=== PATIENT | female | born 1945 | race Caucasian/White ===

== ENCOUNTER → 2017-09-03 | Outpatient (CLI) | payer MEDICARE, OTHER | END | disposition home or self-care (01) | LOC: KCIC MRI 08:26 | DX: M51.36 Other intervertebral disc degeneration, lumbar region (principal); M48.07 Spinal stenosis, lumbosacral region; M25.78 Osteophyte, vertebrae; I10 Essential (primary) hypertension | CPT/HCPCS: 72148 ==

== ENCOUNTER → 2017-10-05 | Outpatient (CLI) | payer MEDICARE, BC, OTHER ==
[2017-10-05 16:01] LABS: ADD MAN DIFF? NO
[2017-10-05 16:12] LABS: BASO % 1 % (0-3); EOS # 0.3 x10^3/uL (0.0-0.7); EOS % 5 % (0-3); HEMATOCRIT 36.1 % (36.0-47.0); HEMOGLOBIN 12.1 g/dL (12.0-15.5); LYMPH # 0.9 x10^3/uL (1.0-4.8); LYMPH % 16 % (24-48); MEAN CORPUSCULAR HEMOGLOBIN 31 pg (25-35); MEAN CORPUSCULAR HGB CONC 34 g/dL (31-37); MEAN CORPUSCULAR VOLUME 94 fL (79-100); MONO # 0.5 x10^3/uL (0.0-1.1); MONO % 9 % (0-9); NEUT % 69 % (31-73); PLATELET COUNT 247 x10^3/uL (140-400); RED BLOOD COUNT 3.86 x10^6/uL (3.50-5.40); RED CELL DISTRIBUTION WIDTH 13.4 % (11.5-14.5); WHITE BLOOD COUNT 5.8 x10^3/uL (4.0-11.0)
[2017-10-05 16:43] LABS: ALBUMIN 3.4 g/dL (3.4-5.0); ALBUMIN/GLOBULIN RATIO 0.9 (1.0-1.7); ALK PHOS 85 U/L (46-116); ALT (SGPT) 16 U/L (14-59); ANION GAP 4 (6-14); AST (SGOT) 8 U/L (15-37); BLOOD UREA NITROGEN 26 mg/dL (7-20); BUN/CREATININE RATIO 20 (6-20); CALCIUM 8.6 mg/dL (8.5-10.1); CARBON DIOXIDE 32 mmol/L (21-32); CHLORIDE 103 mmol/L (98-107); CREATININE 1.3 mg/dL (0.6-1.0); GFR 40.2; GLUCOSE 116 mg/dL (70-99); POTASSIUM 4.1 mmol/L (3.5-5.1); SODIUM 139 mmol/L (136-145); TOTAL BILIRUBIN 0.3 mg/dL (0.2-1.0)
[2017-10-06 02:15] LABS: MRSA BY PCR Negative (Negative)
== END | disposition home or self-care (01) ==
LOC: SURGPAT 13:34
DX: I21.29 ST elevation (STEMI) myocardial infarction involving other sites (principal); R94.31 Abnormal electrocardiogram [ECG] [EKG]
CPT/HCPCS: 36415; 80053; 85025; 87641; 93005

== ENCOUNTER 2017-10-15 10:01 | Day surgery (SDC) | payer MEDICARE, OTHER ==
[2017-10-15] MEDS: IV RINGERS,LACTATED 1000ML 1,000 ML IV (07:00)
[~2017-10-15 10:01] MED LIST: LIDOCAINE 1% PF 2 ML VIAL. ID; MORPHINE SULFATE 4 MG/ML DISP.SYRIN. IV; ONDANSETRON PF 4 MG/2 ML VIAL. IV; PROCHLORPERAZINE 10 MG/2 ML VIAL. IV; fentaNYL PF VIAL 100 MCG/2 ML VIAL IV
[2017-10-15] MEDS ORDERED: LIDOCAINE 2% PF Vial for OR 5 ML VIAL. (11:52)
[2017-10-15] MEDS ORDERED: PROPOFOL 20 ML IV ×2 (11:52→13:01)
[2017-10-15] MEDS ORDERED: ROCURONIUM 50 MG/5 ML VIAL. ×2 (11:52→12:56)
[2017-10-15] MEDS ORDERED: fentaNYL PF VIAL 100 MCG/2 ML VIAL (11:53)
[2017-10-15] MEDS ORDERED: PROPOFOL 50 ML IV ×3 (11:54→14:27)
[2017-10-15] MEDS ORDERED: ceFAZolin 2GM PREMIX 2 GM/50 ML BAG IV (12:00)
[2017-10-15] MEDS ORDERED: SUCCINYLCHOLINE 200 MG/10 ML VIAL. (12:22)
[2017-10-15] MEDS ORDERED: REMIFENTANIL 2 MG VIAL. IV ×2 (12:23→12:56)
[2017-10-15] MEDS ORDERED: PHENYLEPHRINE 10 MG/ML VIAL. (13:01)
[2017-10-15] MEDS ORDERED: DEXAMETHASONE SOD PHOS 20 MG/5 ML VIAL. ×2 (13:01→14:16)
[2017-10-15] MEDS ORDERED: DESFLURANE > 120 MINUTES IH ×2 (13:01→14:16)
[2017-10-15] MEDS ORDERED: ONDANSETRON PF 4 MG/2 ML VIAL. ×2 (13:01→14:16)
[2017-10-15] MEDS ORDERED: ePHEDrine PF IN SALINE 50 MG/5 ML DISP.SYRIN IV (13:44)
[2017-10-15] MEDS ORDERED: PHENYLEPHRINE in 0.9% NACL PF 1 MG/10 ML SYRINGE. IV (13:56)
[2017-10-15] MEDS ORDERED: GLYCOPYRROLATE 1 MG/5 ML VIAL. (14:04)
[2017-10-15] MEDS: GELATIN SPONGE SIZE 100. (14:20)
[2017-10-15] MEDS: BACITRACIN 50,000 UNIT in IV NORMAL SALINE 1000ML BAG 1,000 ML IRR (14:20)
[2017-10-15] MEDS: BUPIVAC MPF-EPI 0.5%-1:200000 30 ML VIAL. INJ (14:20)
[2017-10-15] MEDS: KETOROLAC 60 MG/2 ML INJ FOR OR. (14:20)
[2017-10-15] MEDS: THROMBIN TOPICAL 20,000 UNIT SPRAY.SYRN KIT TP (14:20)
[2017-10-15] MEDS ORDERED: NEOSTIGMINE METHYLSULFATE 5 MG/5 ML SYRINGE. (14:58)
[2017-10-15] MEDS: fentaNYL PF VIAL 100 MCG/2 ML VIAL IV ×2 (15:38→15:49)
[2017-10-15] MEDS: HYDROcodone/APAP 7.5/325MG 1 TAB TABLET PO (16:33)
== END 2017-10-15 17:20 | disposition home or self-care (01) ==
LOC: SURG 10:01
DX: M51.16 Intervertebral disc disorders with radiculopathy, lumbar region (principal); M48.061 Spinal stenosis, lumbar region without neurogenic claudication; I10 Essential (primary) hypertension; F32.9 Major depressive disorder, single episode, unspecified; F41.9 Anxiety disorder, unspecified; K21.9 Gastro-esophageal reflux disease without esophagitis; Z90.49 Acquired absence of other specified parts of digestive tract; Z98.890 Other specified postprocedural states; Z85.42 Personal history of malignant neoplasm of other parts of uterus; Z98.51 Tubal ligation status; Z90.710 Acquired absence of both cervix and uterus; Z96.643 Presence of artificial hip joint, bilateral
CPT/HCPCS: 63030; 76000; 97161-GP; A7015; G8978-CH-GP; G8979-CH-GP; G8980-CH-GP; J0330; J0690; J1100; J1885; J2370; J2405; J2704; J2710; J3010; J3490; J7030; J7120

== ENCOUNTER → 2018-06-16 | Outpatient (CLI) | payer MEDICARE, BC, OTHER ==
[2017-10-15 16:04] VITALS: BP 109/79
[~2018-06-16] MED LIST changes: +DOCU-109 PO; +GADOBUTROL 10 MMOL/10 ML VIAL IV ONE; +HYDR-2761 PO; +HYDR-2765 PO; -LIDOCAINE 1% PF 2 ML VIAL. ID; +LOSA1TAB22 PO; +MELO7.5T29 PO; +MIRA50TA PO; -MORPHINE SULFATE 4 MG/ML DISP.SYRIN. IV; +OMEP20TA63 PO; +ONDA4TAB10 SL; +ONDA4TAB7 PO; -ONDANSETRON PF 4 MG/2 ML VIAL. IV; +PREG50CA PO; -PROCHLORPERAZINE 10 MG/2 ML VIAL. IV; +TRAM50TA PO; +VORT10TA PO; +brintellix PO; -fentaNYL PF VIAL 100 MCG/2 ML VIAL IV
--- NOTE | 2018-06-16 15:39 | KCIC ---
MRI pelvis with and without contrast June 16, 2018 INDICATION: Vaginal cancer. COMPARISON: CT abdomen/pelvis February 12, 2017, MRI pelvis December 23, 2017 TECHNIQUE: Multiplanar, multisequence MR imaging of the pelvis was performed before and after the demonstration of 9 cc gadolinium based contrast. FINDINGS: Iliac vessels appear intact. There are no pathologically enlarged lymph nodes in abdomen and pelvis. There are no pathologically enlarged lymph nodes along the pelvic sidewall are within the mesorectal fat. Evaluation is limited by bilateral total hip arthroplasty resulting in susceptibility artifact. Rectum and rectosigmoid junction appear normal. No bowel wall thickening or perirectal inflammatory changes are identified. Levator ani appears intact. There is no disruption of the pelvic sidewall. The uterus is surgically absent. Ovaries are not visualized. Nodular thickening along the right vaginal cuff previously measured approximately 3.8 x 3.4 cm and currently measures 1.8 x 1.7 cm and measured in similar dimensions. This finding does not significantly enhance and is predominantly T2 hypointense. Consideration may be given for scar tissue. No significant mucosal abnormality is identified involving the lower two thirds of the vagina. The urethra and urinary bladder appear intact. Motion limits evaluation of the posterior bladder wall, however previously seen contiguity between the vagina and posterior bladder is not confirmed on the current examination. There is no significant bladder wall thickening. IMPRESSION: 1. There is decreased nodular thickening of the right vaginal cuff which may be associated with posttreatment effect. No definite invasion of the posterior urinary bladder is visualized on current examination. 2. No new or enlarging pelvic lymphadenopathy. Electronically signed by: Nela Carrera MD (06/16/2018 3:35 PM) [id number]
== END | disposition home or self-care (01) ==
LOC: KCIC MRI 13:26
DX: C52 Malignant neoplasm of vagina (principal); C54.1 Malignant neoplasm of endometrium; Z96.643 Presence of artificial hip joint, bilateral; Z90.710 Acquired absence of both cervix and uterus
CPT/HCPCS: 72197; A9585

== ENCOUNTER → 2021-05-30 | Outpatient (CLI) | payer MEDICARE, BC, OTHER ==
[2020-09-26 11:00] VITALS: BP 100/61
[~2021-05-30] MED LIST changes: +CIPR500T2 PO; +CONTRAST GIVEN. MC PRN; -GADOBUTROL 10 MMOL/10 ML VIAL IV ONE; +IOHEXOL 240 MG/ML 50ML VIAL. PO ONE; +LETROZOLE2.5 MG PO; +MIRA25TA PO; -MIRA50TA PO; +PRED-220 PO; -PREG50CA PO; +PREG50CA91 PO
[2021-05-30 13:47] LABS: ALBUMIN 2.7 g/dL (3.4-5.0); ALBUMIN/GLOBULIN RATIO 0.7 (1.0-1.7); CALCIUM 7.5 mg/dL (8.5-10.1); CREATININE 1.8 mg/dL (0.6-1.0); GFR 27.3; POTASSIUM 4.2 mmol/L (3.5-5.1); TOTAL BILIRUBIN 0.1 mg/dL (0.2-1.0); TOTAL PROTEIN 6.6 g/dL (6.4-8.2)
--- NOTE | 2021-05-30 14:50 | RAD ---
EXAM: Chest, abdomen and pelvis CT without intravenous contrast. HISTORY: Endometrial cancer. TECHNIQUE: Computed tomographic images of the chest, abdomen and pelvis were obtained without intrave nous contrast. Multiplanar reformatting was performed. *One or more of the following individualized dose reduction techniques were utilized for this examina tion: 1. Automated exposure control. 2. Adjustment of the mA and/or kV according to patient size. 3. Use of iterative reconstruction technique. COMPARISON: 04/29/2021. FINDINGS: Chest: There is mild cardiomegaly. There is a small pericardial effusion. There is calcifie d atherosclerotic plaque involving the coronary arteries. There is a left chest wall port catheter. T here are nonspecific mediastinal and hilar lymph nodes. These are not pathologically enlarged. There is no pneumothorax. There is no pleural effusion. There is no infiltrate or suspicious pulmonary nodu le. There are degenerative changes throughout the thoracic and lower cervical spine. There is no acut e or suspicious osseous lesion. There are bilateral shoulder arthroplasties. Abdomen and pelvis: There is a stable 8 mm hypodense lesion within the left hepatic lobe. The gallbla dder, pancreas, spleen, stomach and adrenal glands are unremarkable. There are are bilateral cutaneou s nephrostomy tubes. There is moderate right and mild left hydronephrosis. There is right renal corti temitope thinning and right renal atrophy. The bladder is obscured due to streak artifact from bilateral h ip arthroplasties. There is no appendicitis. There is no bowel obstruction. There is moderate colonic stool. There is di stal colonic diverticulosis. There is a small ventral abdominal wall hernia to the right of the umbil icus containing a portion of the wall of a segment of small bowel. There is no evidence of bowel inca rceration. There is a larger midline inferior ventral abdominal wall hernia containing a segment of s mall bowel. There is overlying scarring due to a prior laparotomy. There are multiple coils within the bilateral adnexal regions. The uterus is absent. There is a stabl e 4.8 cm soft tissue density structure along the right ventral aspect of the rectosigmoid junction. T here is a small amount of pelvic free fluid and stranding within the presacral space. The aorta is no rmal in caliber. There is no convincing pathologically enlarged lymph node or metastatic implants. Th ere are degenerative changes throughout the spine. There are left hemicolectomy changes at L4-L5. The re is no acute or suspicious osseous finding. IMPRESSION: 1. Limited evaluation of the pelvis due to streak artifact from metallic hip arthroplasties. The uter us is absent. There is a stable 1.8 cm soft tissue structure along the right anterior rectosigmoid ju nction which may be due to scar/granulation tissue associated with the vaginal cuff or local residual neoplasm. There is stable surrounding trace fluid and stranding. No lymphadenopathy or metastatic im plant is seen. 2. Moderate right and mild left hydronephrosis and bilateral percutaneous nephrostomy tubes. The righ t hydronephrosis is decreased compared to the prior exam. There is right renal atrophy and right lavonne l cortical thinning. 3. Slight interval increase in a small pericardial effusion. 4. Colonic diverticulosis. 5. Moderate colonic stool. Correlate for constipation. 6. Small stable ventral abdominal wall hernias. 7. Stable indeterminant 8 mm hypodense lesion within the left hepatic lobe. Electronically signed by: Kindra Sepulveda MD (05/30/2021 2:47 PM) [id number]
== END ==
LOC: CT 12:53
PROVIDERS: ATTEND Internal Medicine Hematology & Oncology
DX: N26.1 Atrophy of kidney (terminal) (principal); K57.30 Diverticulosis of large intestine without perforation or abscess without bleeding; N13.30 Unspecified hydronephrosis; K43.9 Ventral hernia without obstruction or gangrene; I31.3 Pericardial effusion (noninflammatory); K56.41 Fecal impaction; I51.7 Cardiomegaly; I25.10 Atherosclerotic heart disease of native coronary artery without angina pectoris; K76.89 Other specified diseases of liver; M47.812 Spondylosis without myelopathy or radiculopathy, cervical region; M47.814 Spondylosis without myelopathy or radiculopathy, thoracic region; Z96.612 Presence of left artificial shoulder joint; Z96.611 Presence of right artificial shoulder joint
CPT/HCPCS: 36415; 71250; 74176; 80053; Q9966

== ENCOUNTER 2021-08-23 22:45 | Inpatient (IN) | payer MEDICARE, BC, OTHER ==
[~2021-08-23] VITALS: Ht 154.9 cm; Wt 72.2 kg
--- NOTE | 2021-08-23 22:35 | NUR ---
Patient admitted from [facility] ER to room 432 per cart. Admitting diagnosis: Hematuria and UTI. Patient has bilateral nephrostomy tubes and the right tube has had decreased output and some blood into the tubing. There has also been some thick white drainage noted inside of the tube. Patient tested positive for UTI and CT Scan showed partial dislodgement of right nephrostomy tube. Patient is alert and oriented x4. denies pain at this time. Will continue to monitor.
[~2021-08-23 22:45] MED LIST changes: -CONTRAST GIVEN. MC PRN; -IOHEXOL 240 MG/ML 50ML VIAL. PO ONE
[2021-08-23] MEDS ORDERED: TRAM50TA PO (23:28)
[2021-08-23 23:35] VITALS: BP 150/82
[2021-08-23] MEDS ORDERED: traMADol 50 MG TABLET PO PRN (23:45)
[2021-08-24 02:44] VITALS: BP 129/56
[2021-08-24] MEDS: ONDANSETRON ODT 4 MG TAB.RAPDIS. PO PRN ×3 (03:57→15:18)
[2021-08-24 07:00] VITALS: BP 134/64
--- NOTE | 2021-08-24 11:14 | PDOC1 ---
History and Physical Date of Service: DOS: DATE: 08/24/21 TIME: 11:09 Chief Complaint: Chief Complain: Hematuria History of Present Illness: HPI: Patient is 76-year-old female presented outside emergency room yesterday due to concern for nephrostomy tube obstruction. Has bilateral nephrostomy tubes in place. Over the past few days has noted decreased output out of the right tube and that the output has been a bit bloody. The blood is also been mixed with a purulent white discharge. Imaging at outside hospital revealed the right TM to be displaced. Was transferred here for further treatment. When seen at bedside patient was resting in bed. No distress. Past Medical/Surgical History: PMH/PSH: Arthritis cancer gastroparesis Allergies: Allergies: Coded Allergies: cephalexin (Verified Allergy, Intermediate, 09/24/20) cycloserine (Verified Allergy, Intermediate, 08/24/21) Family History: Family History: None known Social History: Social History: Denies alcohol tobacco drug use Current Medications: Current Medications Current Medications Tramadol HCl (Ultram) 50 mg PRN QHS PRN PO MODERATE PAIN 4-6 Last administered on 08/24/21at 00:14; Start 08/23/21 at 23:45 Ondansetron HCl (Zofran Odt) 4 mg PRN Q4HRS PRN PO NAUSEA/VOMITING 1ST CHOICE Last administered on 08/24/21at 08:11; Start 08/23/21 at 23:45 Morphine Sulfate (Morphine Sulfate) 2 mg PRN Q2HR PRN IVP SEVERE PAIN 7-10; Start 08/23/21 at 23:45 Piperacillin Sod/ Tazobactam Sod (Zosyn Per Pharmacy) 1 each PRN DAILY PRN MC SEE COMMENTS; Start 08/24/21 at 11:15; Status UNV Ondansetron HCl (Zofran) 4 mg PRN Q6HRS PRN IVP NAUSEA/VOMITING; Start 08/24/21 at 11:15; Status UNV Calcium Carbonate/ Glycine (Tums) 500 mg PRN Q3HRS PRN PO UPSET STOMACH; Start 08/24/21 at 11:15; Status UNV Info (Non-Icu Electrolyte Protocol) 1 ea PRN DAILY PRN MC SEE COMMENTS; Start 08/24/21 at 11:15; Status UNV Oxycodone/ Acetaminophen (Percocet 5/325) 1 tab PRN Q4HRS PRN PO MILD PAIN, 1ST CHOICE; Start 08/24/21 at 11:15; Status UNV Oxycodone/ Acetaminophen (Percocet 5/325) 2 tab PRN Q4HRS PRN PO MODERATE PAIN, SEVERE PAIN; Start 08/24/21 at 11:15; Status UNV Acetaminophen (Tylenol) 650 mg PRN Q6HRS PRN PO Headaches, Temp > 101.5F; Start 08/24/21 at 11:15; Status UNV Senna/Docusate Sodium (Senna Plus) 1 tab BID PO ; Start 08/24/21 at 21:00; Status UNV Heparin Sodium (Porcine) (Heparin Sodium) 5,000 unit Q8HRS SQ ; Start 08/24/21 at 14:00; Status UNV Tramadol HCl (Ultram) 50 mg HS PO ; Start 08/24/21 at 21:00; Status UNV Non-Formulary Medication (Letrozole (Femara)) 2.5 mg DAILY PO ; Start 08/25/21 at 09:00; Status UNV Non-Formulary Medication (Vortioxetine Hydrobromide (Trintellix)) 20 mg DAILY PO ; Start 08/25/21 at 09:00; Status UNV Active Scripts Active Colace (Docusate Sodium) 100 Mg Capsule 100 Mg PO BID 30 Days Reported Tramadol Hcl 50 Mg Tablet 50 Mg PO HS Femara (Letrozole) 2.5 Mg Tablet 2.5 Mg PO DAILY Zofran (Ondansetron Hcl) 4 Mg Tablet 4 Mg PO BID PRN Trintellix (Vortioxetine) 10 Mg Tablet 20 Mg PO DAILY ROS: Review of Systems Review of System Unless noted in HPI 14 point review systems is negative Physical Exam: Vital Signs: Vital Signs Date Time Temp Pulse Resp B/P (MAP) Pulse Ox O2 Delivery O2 Flow Rate FiO2 08/24/21 08:00 Room Air 08/24/21 07:00 98.4 70 16 134/64 (87) 96 98.4 Physcial Exam: GEN: No apparent distress. Alert and oriented HEENT: Normal cephalic, atraumatic, external auditory canals are patent EYES: Extraocular muscles are intact, pupil are equally round and reactive to light and accommodation MUSCULOSKELETAL: Well developed , well nourished, good range of motion ENDOCRINE: No thyromegaly was palpated LYMPHATICS: No cervical chain or axillary nodes were noted HEMATOPOIETIC: No bruising NECK: Supple, no JVD, no thyromegaly was noted LUNGS: Clear to auscultation in all lung jean-baptiste without rhonchi or wheezing HEART: RRR, S!, S2 present. Peripheral pulses intact, no obvious murmurs noted ABDOMEN: Soft, nontender. Positive bowel sounds, no organomegaly, normal bowel sounds EXTREMITIES: Without clubbing, cyanosis, or edema. Pedal pulses intact. Negative Homans sign NEUROLOGIC: Normal speech and tone. A&O x 3, moves all extremities, no obvious focal deficits PSYCHIATRIC: Normal affect, normal mood. Stable SKIN: No ulcerations or rashes, good skin turgor, no jaundice VASCULAR: Good capillary refill, neurovascular bundle appears to be intact Assessment/Plan Assessment/Plan Hydronephrosis, displaced nephrostomy tube, urinary tract infection history of arthritis gastroparesis, DONALD on CKD -Decreased output from right nephrostomy tube. Found to be displaced infected -Transferred here for further work-up -Start Zosyn -As needed pain control -IR consult -Labs at outside hospital showing DONALD. Repeat here -Discussed with bedside RN -DVT prophylaxis Justifications for Admission Other Justification ALEKSANDAR ORTIZ MD Aug 24, 2021 11:14
[2021-08-24] MEDS ORDERED: oxyCODONE/APAP 5/325 1 TAB TABLET PO PRN ×2 (11:15)
[2021-08-24] MEDS ORDERED: ACETAMINOPHEN 325 MG TABLET. PO PRN (11:15)
[2021-08-24] MEDS ORDERED: PIP/TAZO PER PHARMACY MC PRN (11:15)
[2021-08-24] MEDS ORDERED: CALCIUM CARBONATE 500 MG TAB.CHEW PO PRN (11:15)
[2021-08-24] MEDS ORDERED: ELECTROLYTE (NON-ICU) PROTOCOL. MC PRN (11:15)
[2021-08-24 11:28] VITALS: BP 125/53
[2021-08-24] MEDS: PIPERACILLIN/TAZOBACTAM 2.25 GM in IV NORMAL SALINE 50ML 50 ML IV SCH ×2 (11:34→16:43)
[2021-08-24 11:44] LABS: BASO % 1 % (0-3); EOS # 0.2 x10^3/uL (0.0-0.7); EOS % 3 % (0-3); HEMOGLOBIN 8.5 g/dL (12.0-15.5); LYMPH # 0.4 x10^3/uL (1.0-4.8); LYMPH % 7 % (24-48); MEAN CORPUSCULAR HEMOGLOBIN 31 pg (25-35); MEAN CORPUSCULAR HGB CONC 33 g/dL (31-37); MEAN CORPUSCULAR VOLUME 93 fL (79-100); MONO # 0.6 x10^3/uL (0.0-1.1); MONO % 9 % (0-9); NEUT # 5.2 x10^3/uL (1.8-7.7); NEUT % 81 % (31-73); PLATELET COUNT 325 x10^3/uL (140-400); RED CELL DISTRIBUTION WIDTH 14.4 % (11.5-14.5); WHITE BLOOD COUNT 6.4 x10^3/uL (4.0-11.0)
[2021-08-24 12:15] LABS: ALBUMIN 2.3 g/dL (3.4-5.0); ALBUMIN/GLOBULIN RATIO 0.6 (1.0-1.7); CALCIUM 8.6 mg/dL (8.5-10.1); CREATININE 2.1 mg/dL (0.6-1.0); GFR 22.8; POTASSIUM 3.5 mmol/L (3.5-5.1); TOTAL BILIRUBIN 0.2 mg/dL (0.2-1.0); TOTAL PROTEIN 6.2 g/dL (6.4-8.2)
[2021-08-24] MEDS: HEPARIN for SUB-Q USE 5,000 UNIT/ML VIAL. SQ SCH ×2 (14:00→22:52)
[2021-08-24 15:15] VITALS: BP 126/62
[2021-08-24] MEDS: ONDANSETRON PF 4 MG/2 ML VIAL. IVP PRN (16:42)
[2021-08-24] MEDS ORDERED: PROCHLORPERAZINE 10 MG/2 ML VIAL. IV PRN (16:45)
[2021-08-24 19:00] VITALS: BP 118/61
[2021-08-24] MEDS: SENNOSIDES/DOCUSATE 8.6/50MG TABLET. PO SCH (22:43)
[2021-08-24] MEDS: traMADol 50 MG TABLET PO SCH (22:44)
[2021-08-24 23:00] VITALS: BP 136/57
[2021-08-25] MEDS: PIPERACILLIN/TAZOBACTAM 2.25 GM in IV NORMAL SALINE 50ML 50 ML IV SCH ×4 (00:43→16:50)
[2021-08-25 03:00] VITALS: BP 161/72
[2021-08-25] MEDS: ONDANSETRON PF 4 MG/2 ML VIAL. IVP PRN ×2 (04:54→17:48)
[2021-08-25] MEDS: HEPARIN for SUB-Q USE 5,000 UNIT/ML VIAL. SQ SCH ×3 (06:42→22:39)
[2021-08-25 07:00] VITALS: BP 128/62
[2021-08-25] MEDS: NON FORMULARY ITEM (Letrozole (Femara) 2.5 MG) PO SCH (07:16)
[2021-08-25] MEDS: NON FORMULARY ITEM (Vortioxetine Hydrobromide (Trintellix) 20 MG) PO SCH (07:17)
[2021-08-25] MEDS: SENNOSIDES/DOCUSATE 8.6/50MG TABLET. PO SCH ×2 (08:17→22:31)
[2021-08-25] MEDS: LACTOBACILLUS RHAMNOSUS GG 1 CAPSULE. PO SCH ×2 (09:00→22:31)
[2021-08-25 11:00] VITALS: BP 139/60
[2021-08-25 15:00] VITALS: BP 136/79
--- NOTE | 2021-08-25 15:40 | RAD ---
EXAM: RENAL ULTRASOUND CLINICAL HISTORY: Reason: Evaluate hydronephrosis, bilateral nephrostomy tubes COMPARISON: CT from May TECHNIQUE: Ultrasound examination of the bilateral kidneys and urinary bladder was performed. FINDINGS: Right kidney is not optimally evaluated. There is marked right hydronephrosis. Left kidney was 10.9 cm in length. There is no significant left hydronephrosis. The bladder was obscu red. IMPRESSION: 1. Marked right hydronephrosis. 2. No significant left hydronephrosis. Electronically signed by: Hebert Rincon MD (08/25/2021 3:38 PM) [id number]
[2021-08-25 19:00] VITALS: BP 133/48
[2021-08-25] MEDS: traMADol 50 MG TABLET PO SCH (22:31)
[2021-08-25 23:00] VITALS: BP 139/62
--- NOTE | 2021-08-25 23:14 | PDOC ---
[employer] PROGRESS NOTE Date of Service DOS: DATE: 08/25/21 TIME: 23:13 Chief Complaint Chief Complaint Hydronephrosis, displaced nephrostomy tube, urinary tract infection history of arthritis gastroparesis, DONALD on CKD -Decreased output from right nephrostomy tube. Found to be displaced infected -Transferred here for further work-up -continue Zosyn -As needed pain control -IR consult Closely monitor Cr -Discussed with bedside RN -DVT prophylaxis History of Present Illness History of Present Illness 08/25 Patient evaluated examined at bedside. Doing okay resting in bed. Continue antibiotics. Some output from the displaced tube still. Discussed with bedside RN. Vitals/I&O Vitals/I&O: Vital Signs Date Time Temp Pulse Resp B/P (MAP) Pulse Ox O2 Delivery O2 Flow Rate FiO2 08/25/21 22:31 20 Room Air 08/25/21 19:00 98.4 79 133/48 (76) 100 98.4 08/25/21 15:00 1.0 I & O 08/24/21 08/24/21 08/25/21 15:00 23:00 07:00 Intake Total 500 ml Output Total 725 ml 650 ml Balance -225 ml -650 ml Physical Exam General: Alert, Oriented X3, Cooperative Heart: Regular rate Lungs: Clear Abdomen: Normal bowel sounds, Soft Extremities: No edema, Normal pulses Skin: No significant lesion Comment Review of Relevant I have reviewed the following items ana (where applicable) has been applied. Medications: Current Medications Medications (Trade) Dose Ordered Sig/Kevon Route PRN Reason Start Time Stop Time Status Last Admin Dose Admin Lactobacillus Rhamnosus (Culturelle) 1 cap BID PO 08/25/21 09:00 08/25/21 22:31 Justifications for Admission Other Justification ALEKSANDAR ORTIZ MD Aug 25, 2021 23:14
[2021-08-26] VITALS (7 sets, daily range): BP systolic 106–143; BP diastolic 31–74
[2021-08-26] MEDS: PIPERACILLIN/TAZOBACTAM 2.25 GM in IV NORMAL SALINE 50ML 50 ML IV SCH ×4 (00:08→18:35)
[2021-08-26] MEDS: MORPHINE SULFATE 2 MG/ML INJ. IVP PRN ×2 (01:56→12:48)
[2021-08-26] MEDS: ONDANSETRON PF 4 MG/2 ML VIAL. IVP PRN (02:02)
[2021-08-26] MEDS: HEPARIN for SUB-Q USE 5,000 UNIT/ML VIAL. SQ SCH ×3 (06:05→22:06)
[2021-08-26] MEDS: NON FORMULARY ITEM (Vortioxetine Hydrobromide (Trintellix) 20 MG) PO SCH (09:00)
[2021-08-26] MEDS: LACTOBACILLUS RHAMNOSUS GG 1 CAPSULE. PO SCH ×2 (09:00→22:02)
[2021-08-26] MEDS: SENNOSIDES/DOCUSATE 8.6/50MG TABLET. PO SCH ×2 (09:00→22:01)
[2021-08-26] MEDS: NON FORMULARY ITEM (Letrozole (Femara) 2.5 MG) PO SCH (09:00)
[2021-08-26 10:58] LABS: PROTHROMBIN TIME PATIENT 13.9 SEC (11.7-14.0)
[2021-08-26 12:04] LABS: CALCIUM 8.3 mg/dL (8.5-10.1); CREATININE 2.1 mg/dL (0.6-1.0); GFR 22.8; HEMATOCRIT 24.9 % (36.0-47.0); HEMOGLOBIN 8.2 g/dL (12.0-15.5); POTASSIUM 3.8 mmol/L (3.5-5.1); RED BLOOD COUNT 2.64 x10^6/uL (3.50-5.40); RED CELL DISTRIBUTION WIDTH 14.7 % (11.5-14.5); WHITE BLOOD COUNT 6.7 x10^3/uL (4.0-11.0)
--- NOTE | 2021-08-26 12:33 | PDOC ---
[employer] PROGRESS NOTE Date of Service DOS: DATE: 08/26/21 TIME: 12:22 Chief Complaint Chief Complaint Hydronephrosis, displaced nephrostomy tube Urinary tract infection History of arthritis Gastroparesis DONALD on CKD Hyponatremia Hypokalemia Severe protein calorie malnutrition Right sided percutaneous nephrostomy tube appears to have been retracted when compared to imaging from nephrostomy placement dated 07/05/2021. The tube remains partially within the right renal collecting system, coiled within a calyx. Moderate to severe right hydronephrosis. Left-sided percutaneous nephrostomy tube in stable position, coiled in the left renal pelvis. No left hydronephrosis. -Decreased output from right nephrostomy tube. Found to be displaced infected -Transferred here for further work-up -continue Zosyn -As needed pain control -IR consult Closely monitor Cr -Discussed with bedside RN -DVT prophylaxis History of Present Illness History of Present Illness Initial labs with NA 130 2K3.1, CR 2.3 BUN 33 albumin 2.5 08/25: Patient evaluated examined at bedside. Doing okay resting in bed. Continue antibiotics. Some output from the displaced tube still. Discussed with bedside RN. 08/26: Pseudomonas sensitive to Zosyn and Cipro and urine for culture on 08/23/2021. Complaining of bilateral foot burning right greater than left. No history of diabetes or neuropathy previously. Pain was controlled with morphine yesterday but now is not well controlled cannot even bear weight. N.p.o. for IR replacement of right nephrostomy tube. She notes that she was due to have her nephrostomy tubes replaced at [facility] on 09/04/2021. Vitals/I&O Vitals/I&O: Vital Signs Date Time Temp Pulse Resp B/P (MAP) Pulse Ox O2 Delivery O2 Flow Rate FiO2 08/26/21 11:00 98.4 69 18 120/67 (84) 98 Room Air 98.4 08/25/21 23:00 1.0 I & O 08/25/21 08/25/21 08/26/21 15:00 23:00 07:00 Intake Total 120 ml 210 ml 250 ml Output Total 400 ml 650 ml Balance 120 ml -190 ml -400 ml Physical Exam General: Alert, Oriented X3, Cooperative Heart: Regular rate Lungs: Clear Abdomen: Normal bowel sounds, Soft Extremities: No edema, Normal pulses Skin: No significant lesion Labs Labs: Laboratory Tests Test 08/26/21 10:00 White Blood Count 6.7 x10^3/uL (4.0-11.0) Red Blood Count 2.64 x10^6/uL (3.50-5.40) Hemoglobin 8.2 g/dL (12.0-15.5) Hematocrit 24.9 % (36.0-47.0) Mean Corpuscular Volume 94 fL (79-100) Mean Corpuscular Hemoglobin 31 pg (25-35) Mean Corpuscular Hemoglobin Concent 33 g/dL (31-37) Red Cell Distribution Width 14.7 % (11.5-14.5) Platelet Count 314 x10^3/uL (140-400) Prothrombin Time 13.9 SEC (11.7-14.0) Prothromb Time International Ratio 1.1 (0.8-1.1) Activated Partial Thromboplast Time 34 SEC (24-38) Sodium Level 138 mmol/L (136-145) Potassium Level 3.8 mmol/L (3.5-5.1) Chloride Level 103 mmol/L (98-107) Carbon Dioxide Level 27 mmol/L (21-32) Anion Gap 8 (6-14) Blood Urea Nitrogen 21 mg/dL (7-20) Creatinine 2.1 mg/dL (0.6-1.0) Estimated GFR (Cockcroft-Gault) 22.8 Glucose Level 115 mg/dL (70-99) Calcium Level 8.3 mg/dL (8.5-10.1) Comment Review of Relevant I have reviewed the following items ana (where applicable) has been applied. Images: nephrostomy tube malfunction PROCEDURE: CT ABDOMEN PELVIS WO CONTRAST CT ABDOMEN+PELVIS WO INDICATION: nephrostomy tube malfunction EXAM: Noncontrast CT of the abdomen and pelvis. Coronal and sagittal reformatted images were performed. PQRS compliance statement: One or more of the following individualized dose reduction techniques were utilized for this examination: 1. Automated exposure control 2. Adjustment of the mA and/or kV according to patient size 3. Use of iterative reconstruction technique COMPARISON: CT 07/04/2021. Percutaneous nephrostomy tube placement 07/05/2021. FINDINGS: No free air, free fluid, or fluid collection. Lower chest: The visualized lower lungs are aerated. No pleural or pericardial effusion. ABDOMEN: Liver: The noncontrast liver is homogeneous in attenuation. Gallbladder and biliary: Normal gallbladder without radiopaque stone. Normal caliber bile ducts. Spleen: Normal spleen. Pancreas: The noncontrast pancreas is homogeneous in attenuation without peripancreatic inflammatory changes. Adrenal glands: Normal adrenal glands. Kidneys and ureters: Bilateral percutaneous nephrostomy tubes in place. Right s ided tube is coiled in an interpolar calyx, with metallic component outside the kidney. On nephrostomy placement imaging from 07/05/2021, the coiled tube and the metallic component were both within the renal pelvis. Left tube nephrostomy tube is in stable position, coiled in the left renal pelvis. Moderate to severe right hydronephrosis. No left hydronephrosis. Right renal atrophy. GI tract: The stomach is decompressed and poorly evaluated. Normal caliber small bowel and colon. Vascular structures: Normal caliber abdominal aorta. Mild aortoiliac atherosclerotic disease Lymph nodes: No lymphadenopathy in the abdomen or pelvis. PELVIS: Metallic artifact obscures the pelvic structures. SKELETAL STRUCTURES AND SOFT TISSUES: Severe degenerative changes of the spine. Diastases of the infraumbilical abdominal wall musculature with broad-based protrusion of abdominal contents. Bilateral total hip arthroplasties. IMPRESSION: 1. Right sided percutaneous nephrostomy tube appears to have been retracted when compared to imaging from nephrostomy placement dated 07/05/2021. The tube remains partially within the right renal collecting system, coiled within a calyx. Moderate to severe right hydronephrosis. 2. Left-sided percutaneous nephrostomy tube in stable position, coiled in the left renal pelvis. No left hydronephrosis. Justifications for Admission Other Justification ALEKSANDAR BOWLES MD Aug 26, 2021 12:33
[2021-08-26] MEDS ORDERED: LIDOCAINE WITH 8.4% SOD BICARB 3 ML DISP.SYRIN. ONE (12:59)
[2021-08-26] MEDS ORDERED: IODIXANOL 320 MG/ML 50ML VIAL. ONE (13:03)
[2021-08-26] MEDS ORDERED: fentaNYL PF VIAL 100 MCG/2 ML VIAL ONE (13:30)
[2021-08-26] MEDS ORDERED: MIDAZOLAM HCL/PF 2 MG/2 ML VIAL. ONE (13:30)
--- NOTE | 2021-08-26 13:57 | PDOC2 ---
UROLOGY CONSULT Date of Service DATE: 08/26/21 TIME: 13:56 Past Medical History Cardiovascular: HTN, Syncope Psych: Depression Musculoskeletal: Osteoarthritis Renal/: Other Past Surgical History Past Surgical History: Total hip replacement, Other Family History Family History: Other Social History ALCOHOL: rare Lives: with Family Current Medications Current Medications Current Medications Fentanyl Citrate (Fentanyl 2ml Vial) 100 mcg STK-MED ONCE .ROUTE ; Start 08/26/21 at 13:30; Stop 08/26/21 at 13:30; Status DC Heparin Sodium/ Sodium Chloride 500 ml @ As Directed STK-MED ONCE .ROUTE ; Start 08/26/21 at 13:00; Stop 08/26/21 at 13:00; Status DC Iodixanol (Visipaque 320) 50 ml STK-MED ONCE .ROUTE ; Start 08/26/21 at 13:03; Stop 08/26/21 at 13:03; Status DC Lidocaine HCl (Buffered Lidocaine 1%) 3 ml STK-MED ONCE .ROUTE ; Start 08/26/21 at 12:59; Stop 08/26/21 at 12:59; Status DC Midazolam HCl (Versed) 2 mg STK-MED ONCE .ROUTE ; Start 08/26/21 at 13:30; Stop 08/26/21 at 13:30; Status DC Allergies Allergies: Coded Allergies: cephalexin (Verified Allergy, Intermediate, 09/24/20) cycloserine (Verified Allergy, Intermediate, 08/24/21) Vitals VITALS Vital Signs Date Time Temp Pulse Resp B/P (MAP) Pulse Ox O2 Delivery O2 Flow Rate FiO2 08/26/21 11:00 98.4 69 18 120/67 (84) 98 Room Air 98.4 08/25/21 23:00 1.0 Labs Labs Laboratory Tests Test 08/26/21 10:00 White Blood Count 6.7 x10^3/uL (4.0-11.0) Red Blood Count 2.64 x10^6/uL (3.50-5.40) Hemoglobin 8.2 g/dL (12.0-15.5) Hematocrit 24.9 % (36.0-47.0) Mean Corpuscular Volume 94 fL (79-100) Mean Corpuscular Hemoglobin 31 pg (25-35) Mean Corpuscular Hemoglobin Concent 33 g/dL (31-37) Red Cell Distribution Width 14.7 % (11.5-14.5) Platelet Count 314 x10^3/uL (140-400) Prothrombin Time 13.9 SEC (11.7-14.0) Prothromb Time International Ratio 1.1 (0.8-1.1) Activated Partial Thromboplast Time 34 SEC (24-38) Sodium Level 138 mmol/L (136-145) Potassium Level 3.8 mmol/L (3.5-5.1) Chloride Level 103 mmol/L (98-107) Carbon Dioxide Level 27 mmol/L (21-32) Anion Gap 8 (6-14) Blood Urea Nitrogen 21 mg/dL (7-20) Creatinine 2.1 mg/dL (0.6-1.0) Estimated GFR (Cockcroft-Gault) 22.8 Glucose Level 115 mg/dL (70-99) Calcium Level 8.3 mg/dL (8.5-10.1) Magnesium Level 1.7 mg/dL (1.8-2.4) Vitamin B12 Level 137 pg/mL (247-911) Laboratory Tests Test 08/26/21 10:00 White Blood Count 6.7 x10^3/uL (4.0-11.0) Red Blood Count 2.64 x10^6/uL (3.50-5.40) Hemoglobin 8.2 g/dL (12.0-15.5) Hematocrit 24.9 % (36.0-47.0) Mean Corpuscular Volume 94 fL (79-100) Mean Corpuscular Hemoglobin 31 pg (25-35) Mean Corpuscular Hemoglobin Concent 33 g/dL (31-37) Red Cell Distribution Width 14.7 % (11.5-14.5) Platelet Count 314 x10^3/uL (140-400) Prothrombin Time 13.9 SEC (11.7-14.0) Prothromb Time International Ratio 1.1 (0.8-1.1) Activated Partial Thromboplast Time 34 SEC (24-38) Sodium Level 138 mmol/L (136-145) Potassium Level 3.8 mmol/L (3.5-5.1) Chloride Level 103 mmol/L (98-107) Carbon Dioxide Level 27 mmol/L (21-32) Anion Gap 8 (6-14) Blood Urea Nitrogen 21 mg/dL (7-20) Creatinine 2.1 mg/dL (0.6-1.0) Estimated GFR (Cockcroft-Gault) 22.8 Glucose Level 115 mg/dL (70-99) Calcium Level 8.3 mg/dL (8.5-10.1) Magnesium Level 1.7 mg/dL (1.8-2.4) Vitamin B12 Level 137 pg/mL (247-911) Assessment/Plan Assessment/Plan Attempted to see patient for consult regarding bilateral nephrostomy tubes. Pt was down with IR for replacement of these. Agree with this, as right PCN looks obstructed per ultrasound. No other acute urologic intervention necessary at this time. Recommend she f/u with her urologist after d/c. Please call with noe boo. TONI GAONA Aug 26, 2021 13:57
[2021-08-26] MEDS ORDERED: LIDOCAINE WITH 8.4% SOD BICARB 3 ML DISP.SYRIN. IJ ONE (14:00)
[2021-08-26] MEDS ORDERED: MIDAZOLAM HCL/PF 2 MG/2 ML VIAL. IV ONE (14:00)
[2021-08-26] MEDS ORDERED: IODIXANOL 320 MG/ML 50ML VIAL. IV ONE (14:00)
[2021-08-26] MEDS ORDERED: fentaNYL PF VIAL 100 MCG/2 ML VIAL IV ONE (14:00)
--- NOTE | 2021-08-26 14:14 | NUR ---
milky yellow drainage from rt nephrostomy tube. clear yellow drainage from lt nephrostomy tube Addendum: 08/26/21 at 1416 by LUPIS PINZON RN Amended: Links added.
[2021-08-26] MEDS: ONDANSETRON ODT 4 MG TAB.RAPDIS. PO PRN (19:26)
[2021-08-26] MEDS: traMADol 50 MG TABLET PO SCH (22:03)
[2021-08-27] MEDS: PIPERACILLIN/TAZOBACTAM 2.25 GM in IV NORMAL SALINE 50ML 50 ML IV SCH ×3 (00:16→11:55)
[2021-08-27 03:00] VITALS: BP 116/62
[2021-08-27] MEDS: HEPARIN for SUB-Q USE 5,000 UNIT/ML VIAL. SQ SCH ×2 (06:33→11:52)
[2021-08-27 07:00] VITALS: BP 159/70
[2021-08-27] MEDS: NON FORMULARY ITEM (Letrozole (Femara) 2.5 MG) PO SCH (08:27)
[2021-08-27] MEDS: NON FORMULARY ITEM (Vortioxetine Hydrobromide (Trintellix) 20 MG) PO SCH (08:27)
[2021-08-27] MEDS: LACTOBACILLUS RHAMNOSUS GG 1 CAPSULE. PO SCH (08:58)
[2021-08-27] MEDS: SENNOSIDES/DOCUSATE 8.6/50MG TABLET. PO SCH (08:58)
[2021-08-27] MEDS ORDERED: CYANOCOBALAMIN (VITAMIN B-12) 1,000 MCG/ML VIAL. IM ONE (12:00)
[2021-08-27] MEDS ORDERED: CIPR250T PO (12:12)
[2021-08-27] MEDS ORDERED: LACT1CAP19 PO (12:12)
--- NOTE | 2021-08-27 12:14 | SNU/HH DC ---
DISCHARGE WITH HOME HEALTH DISCHARGE INFORMATION: Discharge Date: Aug 27, 2021 Final Diagnosis: Pseudomonas UTI, Displaced right nephrostomy tube Condition on Discharge: Stable CODE STATUS: Code Status: Full HOME HEALTH: Face to Face: I certify this patient is under my care and that I, or a nurse practitioner or physician's editorial assistant working with me, had a face to face encounter that meets the physician face to face encounter requirements with this patient on 08/27/2021. 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 POST DISCHARGE ORDERS: Activity Instructions for Disc: No restrictions Weight Bearing Status after Di: No restrictions Bathing Instructions: Shower-keep dressing dry DIET AFTER DISCHARGE: Regular Wound/Incision Care: Ice to area for comfort CHECKS AFTER DISCHARGE: Comment: socrates nephrostomy drains replaced FOLLOW-UP: Additional Instructions: Radiology follow-up with Dr. Cortez TREATMENT/EQUIPMENT ORDERS: Infusion Equipment, home use: PortaCath CERTIFICATION STATEMENT: Certification Statement: Certification Statement: Based on the above finding, I certify that this patient is confined to the home and needs intermittent usp care, physical therapy and/or speech therapy, or continues to need occupational therapy.~ This patient is under my care, and I have initiated the establishment of the plan of care.~ This patient will be followed by myself or a community physician who will periodically review the plan of care. Home Meds Active Scripts Ciprofloxacin Hcl (CIPROFLOXACIN HCL) 250 Mg Tablet, 1 TAB PO BID for P seudomonas UTI for 7 Days, #14 TAB Prov:ALEKSANDAR BOWLES MD 08/27/21 Lactobacillus Rhamnosus Gg (CULTURELLE) 1 Each Cap.sprink, 1 CAP PO BID for uti for 14 Days, #28 CAP Prov:ALEKSANDAR BOWLES MD 08/27/21 Docusate Sodium (COLACE) 100 Mg Capsule, 100 MG PO BID for 30 Days, #60 CAP Prov:JUAREZ METZ MD 10/15/17 Reported Medications Tramadol Hcl (TRAMADOL HCL) 50 Mg Tablet, 50 MG PO HS for pain, TAB 0 Refills 08/23/21 Letrozole (FEMARA) 2.5 Mg Tablet, 2.5 MG PO DAILY for BREAST CANCER, TAB 09/22/20 Ondansetron Hcl (ZOFRAN) 4 Mg Tablet, 4 MG PO BID PRN for NAUSEA/VOMITING, TAB 10/06/17 Vortioxetine Hydrobromide (TRINTELLIX) 10 Mg Tablet, 20 MG PO DAILY for , TAB 10/06/17 ALEKSANDAR BOWLES MD Aug 27, 2021 12:14
[2021-08-27] MEDS ORDERED: HEPARIN PF 500 UNIT/5 ML DISP.SYRIN. IVP ONE (12:15)
--- NOTE | 2021-08-27 12:15 | PDOC ---
[employer] PROGRESS NOTE Date of Service DOS: DATE: 08/27/21 TIME: 12:14 Chief Complaint Chief Complaint Hydronephrosis, displaced nephrostomy tube Urinary tract infection History of arthritis Gastroparesis DONALD on CKD Hyponatremia Hypokalemia Severe protein calorie malnutrition Right sided percutaneous nephrostomy tube appears to have been retracted when compared to imaging from nephrostomy placement dated 07/05/2021. The tube remains partially within the right renal collecting system, coiled within a calyx. Moderate to severe right hydronephrosis. Left-sided percutaneous nephrostomy tube in stable position, coiled in the left renal pelvis. No left hydronephrosis. -Decreased output from right nephrostomy tube. Found to be displaced infected -Transferred here for further work-up -continue Zosyn -As needed pain control -IR consult Closely monitor Cr -Discussed with bedside RN -DVT prophylaxis History of Present Illness History of Present Illness Initial labs with NA 130 2K3.1, CR 2.3 BUN 33 albumin 2.5 08/25: Patient evaluated examined at bedside. Doing okay resting in bed. Continue antibiotics. Some output from the displaced tube still. Discussed with bedside RN. 08/26: Pseudomonas sensitive to Zosyn and Cipro and urine for culture on 08/23/2021. Complaining of bilateral foot burning right greater than left. No history of diabetes or neuropathy previously. Pain was controlled with morphine yesterday but now is not well controlled cannot even bear weight. N.p.o. for IR replacement of right nephrostomy tube. She notes that she was due to have her nephrostomy tubes replaced at [facility] on 09/04/2021. 08/27: Able to ambulate to the bathroom status post nephrostomy tube replacement. Transition to Cipro for an additional 7 days outpatient and will have monthly nephrostomy tube placement with interventional radiology. Pain is reasonably controlled with tramadol for which she has a prescription at home. Seen by urology and recommended to follow-up with primary urologist outpatient Vitals/I&O Vitals/I&O: Vital Signs Date Time Temp Pulse Resp B/P (MAP) Pulse Ox O2 Delivery O2 Flow Rate FiO2 08/27/21 08:00 Room Air 08/27/21 07:00 97.9 77 18 159/70 (99) 94 97.9 08/26/21 14:33 2.0 I & O 08/26/21 08/26/21 08/27/21 15:00 23:00 07:00 Intake Total 200 ml Output Total 250 ml 400 ml Balance -250 ml 200 ml -400 ml Physical Exam General: Alert, Oriented X3, Cooperative Heart: Regular rate Lungs: Clear Abdomen: Normal bowel sounds, Soft Extremities: No edema, Normal pulses Skin: No significant lesion Comment Review of Relevant I have reviewed the following items ana (where applicable) has been applied. Medications: Current Medications Medications (Trade) Dose Ordered Sig/Kevon Route PRN Reason Start Time Stop Time Status Last Admin Dose Admin Heparin Sodium/ Sodium Chloride (HEPARIN for ARTERIAL LINE FLUSH) 1,000 unit 1X ONCE IART 08/26/21 14:00 08/26/21 14:05 DC 08/26/21 14:30 Midazolam HCl (Versed) 2 mg 1X ONCE IV 08/26/21 14:00 08/26/21 14:05 DC 08/26/21 14:33 Fentanyl Citrate (Fentanyl 2ml Vial) 100 mcg 1X ONCE IV 08/26/21 14:00 08/26/21 14:05 DC 08/26/21 14:33 Iodixanol (Visipaque 320) 50 ml 1X ONCE IV 08/26/21 14:00 08/26/21 14:05 DC 08/26/21 14:00 Cyanocobalamin (Vitamin B-12 Inj) 1,000 mcg 1X ONCE IM 08/27/21 12:00 08/27/21 12:01 DC 08/27/21 11:57 Justifications for Admission Other Justification ALEKSANDAR BOWLES MD Aug 27, 2021 12:15
--- NOTE | 2021-08-27 12:19 | PDOC3 ---
Discharge Summary Visit Information Date of Admission: Aug 23, 2021 Date of Discharge: Aug 27, 2021 Admitting Diagnosis: Dislodged nephrostomy tube, Pseudomonas UTI Final Diagnosis Dislodged nephrostomy tube, Pseudomonas UTI Brief Hospital Course Allergies Allergies Coded Allergies Type Severity Reaction Last Updated Verified cephalexin Allergy Intermediate 09/24/20 Yes cycloserine Allergy Intermediate 08/24/21 Yes Vital Signs Vital Signs Date Time Temp Pulse Resp B/P (MAP) Pulse Ox O2 Delivery O2 Flow Rate FiO2 08/27/21 08:00 Room Air 08/27/21 07:00 97.9 77 18 159/70 (99) 94 97.9 08/26/21 14:33 2.0 Lab Results Laboratory Tests Test 08/26/21 10:00 White Blood Count 6.7 x10^3/uL (4.0-11.0) Red Blood Count 2.64 x10^6/uL (3.50-5.40) Hemoglobin 8.2 g/dL (12.0-15.5) Hematocrit 24.9 % (36.0-47.0) Mean Corpuscular Volume 94 fL (79-100) Mean Corpuscular Hemoglobin 31 pg (25-35) Mean Corpuscular Hemoglobin Concent 33 g/dL (31-37) Red Cell Distribution Width 14.7 % (11.5-14.5) Platelet Count 314 x10^3/uL (140-400) Prothrombin Time 13.9 SEC (11.7-14.0) Prothromb Time International Ratio 1.1 (0.8-1.1) Activated Partial Thromboplast Time 34 SEC (24-38) Sodium Level 138 mmol/L (136-145) Potassium Level 3.8 mmol/L (3.5-5.1) Chloride Level 103 mmol/L (98-107) Carbon Dioxide Level 27 mmol/L (21-32) Anion Gap 8 (6-14) Blood Urea Nitrogen 21 mg/dL (7-20) Creatinine 2.1 mg/dL (0.6-1.0) Estimated GFR (Cockcroft-Gault) 22.8 Glucose Level 115 mg/dL (70-99) Calcium Level 8.3 mg/dL (8.5-10.1) Magnesium Level 1.7 mg/dL (1.8-2.4) Vitamin B12 Level 137 pg/mL (247-911) Brief Hospital Course Ms Hightower is a 76yo female with PMHx hypertension, generalized osteoarthritis, uterine cancer that was treated initially surgically and received radiation treatment and chemotherapy and s/p bilateral nephrostomy tubes for secondary urinary obstruction, bilateral sensorineural deafness and gastroparesis who was admitted from [facility] for confusion, weakness, and dislodged nephrostomy tube. Initial labs with NA 130 2K3.1, CR 2.3 BUN 33 albumin 2.5 08/25: Patient evaluated examined at bedside. Doing okay resting in bed. Continue antibiotics. Some output from the displaced tube still. Discussed with bedside RN. 08/26: Pseudomonas sensitive to Zosyn and Cipro and urine for culture on 08/23/2021. Complaining of bilateral foot burning right greater than left. No history of diabetes or neuropathy previously. Pain was controlled with morphine yesterday but now is not well controlled cannot even bear weight. N.p.o. for IR replacement of right nephrostomy tube. She notes that she was due to have her nephrostomy tubes replaced at [facility] on 09/04/2021. 08/27: Able to ambulate to the bathroom status post nephrostomy tube replacement. Transition to Cipro for an additional 7 days outpatient and will have monthly nephrostomy tube placement with interventional radiology. Pain is reasonably controlled with tramadol for which she has a prescription at home. Seen by urology and recommended to follow-up with primary urologist outpatient Consults: IR, urology Problem list: DONALD on CKD Hyponatremia Hypokalemia Severe protein calorie malnutrition Right sided percutaneous nephrostomy tube appears to have been retracted when compared to imaging from nephrostomy placement dated 07/05/2021. The tube remains partially within the right renal collecting system, coiled within a calyx. Moderate to severe right hydronephrosis. Left-sided percutaneous nephrostomy tube in stable position, coiled in the left renal pelvis. No left hydronephrosis. Hydronephrosis, displaced nephrostomy tube Pseudomonas Urinary tract infection History of arthritis Gastroparesis Greater than 30 minutes spent on d/c home with home health Discharge Information Condition at Discharge: Improved Follow Up: Weeks (1) Disposition/Orders: D/C to Home w/ HH Scheduled Ciprofloxacin Hcl (Ciprofloxacin Hcl) 250 Mg Tablet, 1 TAB PO BID for Pseudomonas UTI for 7 Days, #14 Prescribed by: ALEKSANDAR BOWLES MD on 08/27/21 1212 Docusate Sodium (Colace) 100 Mg Capsule, 100 MG PO BID for 30 Days, #60 Prescribed by: JUAREZ METZ on 10/15/17 1335 Last Action: HELD on 08/24/211107 by ALEKSANDAR ORTIZ MD Lactobacillus Rhamnosus Gg (Culturelle) 1 Each Cap.sprink, 1 CAP PO BID for uti for 14 Days, #28 Prescribed by: ALEKSANDAR BOWLES MD on 08/27/21 1212 Letrozole (Femara) 2.5 Mg Tablet, 2.5 MG PO DAILY for BREAST CANCER, (Reported) Entered as Reported by: KIMBERLY SOMMERS, RN on 09/22/20 4481 Last Action: Converted on 08/24/211107 by ALEKSANDAR ORTIZ MD Tramadol Hcl (Tramadol Hcl) 50 Mg Tablet, 50 MG PO HS for pain, Ref 0 (Reported) Entered as Reported by: ERIC PEREZ on 08/23/212327 Last Action: Continued on 08/24/211107 by ALEKSANDAR ORTIZ MD Vortioxetine Hydrobromide (Trintellix) 10 Mg Tablet, 20 MG PO DAILY for , (Reported) Entered as Reported by: EDWINA PATTON on 10/06/17824 Last Action: Converted on 08/24/211107 by ALEKSANDAR ORTIZ MD Scheduled PRN Ondansetron Hcl (Zofran) 4 Mg Tablet, 4 MG PO BID PRN for NAUSEA/VOMITING, (Reported) Entered as Reported by: EDWINA PATTON on 10/06/17824 Last Action: HELD on 08/24/211107 by ALEKSANDAR ORTIZ MD Justicifation of Admission Dx: Justifications for Admission: Justification of Admission Dx: Yes ALEKSANDAR BOWLES MD Aug 27, 2021 12:19
--- NOTE | 2021-08-27 14:53 | NUR ---
Discharge Note: AUBREE GARCIA [address] Discharge instructions and discharge home medications reviewed with Patient and a copy given. All questions have been answered and understanding verbalized. The following instructions and handouts were given: information about medications, diet, activity, follow up appointments. Discontinued lines and drains: left chest port de-accessed, Heparin locked. Patient discharged to home with home health with family, wheelchair used for mobility to discharge vehicle.
--- NOTE | 2021-08-28 12:21 | RAD ---
Exchange of bilateral nephrostomy tubes 08/26/2021 Indication: Right nephrostomy tube partially withdrawn. Routine exchange needed. Consent: The procedure was explained in its entirety to the patient or the patients designated repres entative by a member of the treatment team, including a discussion of the risks, benefits and commonl y accepted alternatives to the procedure, as well as the expected consequences of no therapy whatsoev er. Discussion of the risks included, but was not limited to, those that are most frequent and thos e that are rare but possibly severe or life-threatening, as well as the possibility of unforeseen com plications. Discussion: The patient was placed in prone position. A timeout procedure was performed. Fluoroscopic evaluation of contrast demonstrates a left-sided nephrostomy tube in appropriate position. This cath eter was exchanged over a guidewire for a new 10 Uzbek nephrostomy tube. On the right nephrostomy tube was partially withdrawn with the majority of the catheter in the subcut aneous tract. A guidewire was manipulated through this catheter into the ureter. Subsequently the pre viously seen catheter was removed and replaced with a new 10 Uzbek nephrostomy tube with pigtail for med in the renal pelvis. Catheter secured in place no immediate complications were identified. Fluoroscopy time 3.2 minutes Dose area product 4 perry centimeters squared Sedation: The procedure was performed under conscious sedation including continuous cardiopulmonary m onitoring via a dedicated sedation nurse. [id number] sedation time: 40 minutes IMPRESSION: Replacement of bilateral nephrostomy tubes over a wire through pre-existing tracts Electronically signed by: Jaycob Cortez MD (08/28/2021 12:18 PM) [id number]
== END 2021-08-27 14:53 | disposition home health service (06) | DRG 698 ==
LOC: 4 NORTH 22:45
PROVIDERS: ADMIT Student in an Organized Health Care Education/Training Program; ATTEND Student in an Organized Health Care Education/Training Program
PROC: 0T25X0Z Change Drainage Device in Kidney, External Approach (ICD-10-PCS; principal; 2021-08-26)
PROC: 0T25X0Z Change Drainage Device in Kidney, External Approach (ICD-10-PCS; 2021-08-26)
DX: T83.022A Displacement of nephrostomy catheter, initial encounter (principal); E43 Unspecified severe protein-calorie malnutrition; N17.9 Acute kidney failure, unspecified; E87.1 Hypo-osmolality and hyponatremia; N13.6 Pyonephrosis; N18.9 Chronic kidney disease, unspecified; K31.84 Gastroparesis; B96.5 Pseudomonas (aeruginosa) (mallei) (pseudomallei) as the cause of diseases classified elsewhere; M15.9 Polyosteoarthritis, unspecified; I12.9 Hypertensive chronic kidney disease with stage 1 through stage 4 chronic kidney disease, or unspecified chronic kidney disease; Y73.2 Prosthetic and other implants, materials and accessory gastroenterology and urology devices associated with adverse incidents; Z96.649 Presence of unspecified artificial hip joint; F32.A Depression, unspecified; Z85.42 Personal history of malignant neoplasm of other parts of uterus; Z88.1 Allergy status to other antibiotic agents; Z88.8 Allergy status to other drugs, medicaments and biological substances; Z68.30 Body mass index [BMI] 30.0-30.9, adult
CPT/HCPCS: 36415; 50435; 76770; 80048; 80053; 82607; 83735; 85025; 85027; 85610; 85730; 87077; 87086; 87186; 99152; 99153; C1769; J0780; J1642; J1644; J2250; J2270; J2405; J2543; J3010; J3420; Q9967; G0378